=== PATIENT | female | born 1970 | race Two or more races ===

== ENCOUNTER → 2024-06-28 | Outpatient (REF) | payer BC | LOC: M SFHCWAGY 15:16 | PROVIDERS: ATTEND Specialist | DX: Z12.4 Encounter for screening for malignant neoplasm of cervix (principal) | CPT/HCPCS: 87624; G0123 ==

== ENCOUNTER 2025-03-08 06:26 | Observation (INO) | payer BC ==
[~2025-03-08] VITALS: Ht 160 cm; Wt 64.9 kg
[2025-03-08] VITALS (9 sets, daily range): BP systolic 121–128; BP diastolic 57–62; TEMP 98.1–98.7; O2SAT 92–97
[~2025-03-08 06:26] MED LIST: CYAN500T14 PO; DORZ2SOL5 OU; ESTR0.059 TD; FLUO40CA PO; LEVOTAB10 PO; LR 1,000 ML IV SCH; MEDR5TAB3 PO; OMEP-173 PO; PROBCAP2 PO; SEMA1.7P; TIRZ2.5P3 SQ; VITA100093 PO; VITA500C24 PO; XALA0.007 OU; ceFAZolin SOD 2 GM IV ONCE IV ONE
[2025-03-08] MEDS ORDERED: dexAMETHasone 4 MG/ML 1 ML VIAL As Ordered ONE (06:55)
[2025-03-08] MEDS ORDERED: LIDOCAINE 2% 100 MG/5 ML SDV (FOR ANES.) As Ordered ONE (06:55)
[2025-03-08] MEDS ORDERED: ONDANSETRON 4MG/2ML VIAL As Ordered ONE (06:55)
[2025-03-08] MEDS ORDERED: ROCURONIUM BROMIDE 50MG/5ML VIAL As Ordered ONE (06:55)
[2025-03-08] MEDS ORDERED: SUGAMMADEX SODIUM 500 MG/5 ML VIAL As Ordered ONE (06:55)
[2025-03-08] MEDS ORDERED: dexmedeTOMIDine (4 MCG/ML) 200 MCG/50 ML BTL As Ordered ONE (06:55)
[2025-03-08] MEDS ORDERED: MIDAZOLAM INJ 2 MG/2 ML VIAL As Ordered ONE (06:56)
[2025-03-08] MEDS ORDERED: SCOPOLAMINE 1MG TRANSDERMAL PATCH As Ordered ONE (07:17)
[2025-03-08] MEDS: SCOPOLAMINE 1MG TRANSDERMAL PATCH TOP ONE (07:42)
[2025-03-08] MEDS ORDERED: ACETAMINOPHEN 1000MG/100ML IV BAG As Ordered ONE (08:08)
[2025-03-08] MEDS: GENTAMICIN SULF 80 MG/2 ML VIAL As Ordered ONE (08:49)
[2025-03-08] MEDS ORDERED: HYDROmorphone HCL 2 MG/ML 1 ML VIAL As Ordered ONE (10:16)
[2025-03-08] MEDS ORDERED: PHENYLephrine 500MCG 5ML (100MCG/ML) SYRINGE As Ordered ONE (11:01)
[2025-03-08] MEDS ORDERED: EPINEPHrine 1 MG/10 ML SYRINGE 1.5IN As Ordered ONE (11:01)
[2025-03-08] MEDS ORDERED: ONDANSETRON 4MG/2ML VIAL IV PRN ×2 (11:30→11:50)
[2025-03-08] MEDS: ALPRAZolam 0.25 MG TAB PO ONE (12:43)
[2025-03-08] MEDS: traMADol 50 MG TAB PO PRN (14:03)
[2025-03-08] MEDS: LR 1,000 ML IV SCH (16:16)
[2025-03-08] MEDS: ceFAZolin SODIUM 2 GM in DEXTROSE 5% (D5W) ADV/MINI-BAG 50 ML IV SCH (16:16)
[2025-03-08] MEDS: ACETAMINOPHEN 325 MG TAB PO PRN (17:23)
[2025-03-09 06:16] VITALS: BP 120/49; TEMP 99.4; O2SAT 95
[2025-03-09] MEDS: KETOROLAC TROMETHAMINE 10 MG TAB PO PRN (07:23)
[2025-03-09] MEDS ORDERED: ESTR1CRE PV (07:51)
[2025-03-09] MEDS ORDERED: HOME MED LIST COMPLETE! XX SCH (07:55)
[2025-03-09] MEDS ORDERED: TRAM50TA2 PO (09:37)
[2025-03-09] MEDS: FLUoxetine 20 MG CAP PO SCH (09:58)
[2025-03-09] MEDS: OMEPRAZOLE 20MG CAP PO SCH (09:58)
== END 2025-03-09 11:00 | disposition home or self-care (01) ==
LOC: M SDC 06:26 → M MS5PR 06:27
PROVIDERS: ADMIT Plastic Surgery Surgery of the Hand; ATTEND Plastic Surgery Surgery of the Hand
DX: L98.7 Excessive and redundant skin and subcutaneous tissue (principal); D17.21 Benign lipomatous neoplasm of skin and subcutaneous tissue of right arm
CPT/HCPCS: 15836; 88300; 88305; J0131; J0168; J0665; J0666; J0688; J1100; J1171; J1580; J2250; J2371; J2405; J3010